=== PATIENT | male | born 1940 | race Caucasian/White ===

== ENCOUNTER → 2024-02-11 | Outpatient (CLI) | payer MEDICARE ==
--- NOTE | 2024-02-12 07:27 | HMCSR ---
APPROVED REPORT EXAM: Two-dimensional and M-mode echocardiogram with Doppler and color Doppler. 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 RISK FACTORS Hypertension Hyperlipidemia 2D Dimensions RVDd4.8 cmLVEF(%)58.4 (>50%)LVED Vol(simp.)131.0 mL IVSd1.0 (0.7-1.1cm)FS(%)31 %LVES Vol(simp.)58.0 mL LVDd4.9 (3.8-5.6cm)LA (2D)3.9 (1.6-4.0cm)LVEF(%, simp.)56 % PWd0.9 (0.7-1.1cm)Ao Root(2D)3.7 (2.0-3.7cm)LA ESV INDEX (BP)27.64 mL/m2 LVDs3.4 (2.5-4.0cm)LVOT diam2.1 (1.8-2.4cm) IVC diam1.9 cm Aortic Valve AoV Vmax1.6 m/Neftali Peak GR9.7 mmHgLVOT Vmax1.3 m/s AoV VTI0.3 mAo Mean GR5.4 mmHgLVOT VTI0.26 m KRYSTYNA (VMAX)3.0 cm2Al P1/2T868 msAVA (VTI) 3.0 cm2 Mitral Valve MV E Vmax44.9 cm/sDECEL Empn214 ms MV A Vmax72.2 cm/sP 1/2 T103 ms E/A ratio0.6MVA (PHT)2.1 cm2 MR Max PG36 mmHg TDI E/E' [id number]/E' Woqiefm05.0 Pulmonary Valve PV Vmax0.8 m/sPV VTI0.15 mPV Mean GR1 mmHg PV Peak GR2.4 mmHgPI End Concha. Edson 1.2 cm/s Tricuspid Valve TR Vmax2.3 m/sRAP (EST) 8 xnNvXOBV56.0 mmHg TR Peak GR22.0 mmHg Left Ventricle Left ventricular cavity size is normal. There is normal LV segmental wall motion. There is normal lef t ventricular wall thickness. LVEF is 55-60%. Stage I diastolic dysfunction. Right Ventricle The right ventricle is dilated. The right ventricular systolic function is normal. Atria The left atrium size is normal. The right atrium is dilated. Aortic Valve Aortic valve is trileaflet. The aortic valve is mildly thickened but opens well. Mild aortic regurgit ation. There is no aortic valvular stenosis. Mitral Valve Mitral valve leaflets are sclerotic but open well. Mitral regurgitation is trace. There is no mitral valve stenosis. Tricuspid Valve The tricuspid valve leaflets appear normal. There is trace tricuspid regurgitation. Right ventricular systolic pressure is estimated at 30-40 mmHg. Pulmonic Valve Pulmonic valve is not well visualized. There is mild valvular regurgitation. Great Vessels The aortic root is normal in size. IVC is dilated and collapses >50% with inspiration. Pericardium No pericardial effusion. Conclusion LVEF is 55-60%. Stage I diastolic dysfunction. Mild aortic regurgitation. Mitral regurgitation is trace.
== END | disposition home or self-care (01) ==
LOC: SHCH 08:07
PROVIDERS: ATTEND Internal Medicine Cardiovascular Disease
DX: I08.8 Other rheumatic multiple valve diseases (principal); I25.10 Atherosclerotic heart disease of native coronary artery without angina pectoris; E78.5 Hyperlipidemia, unspecified; I10 Essential (primary) hypertension
CPT/HCPCS: 93306

== ENCOUNTER → 2024-02-18 | Outpatient (CLI) | payer MEDICARE ==
[2024-02-18] MEDS: REGADENOSON 0.4 MG/5 ML PF SYG IVP ONE (15:23)
--- NOTE | 2024-02-19 08:51 | HMCSR ---
APPROVED REPORT Height: 6 ft 0in Weight: 208 lbs TEST INDICATIONS CAD The imaging protocol used to acquire images was Rest Tc-99m/stress Tc-99m 1 day Consent: The procedure was explained and understood by the patient. Informerd consent was witnessed Arcadio Hung RN First, low dose rest was performed then high dose stress. RESTING DATA: The resting ekg shows: Atrial Fibrillation, RBBB Rest SPECT myocardial perfusion imaging was performed in supine position 95 minutes following the int ravenous injection of 12.9 mCi of Tc-99 Sestamibi. Time of rest injection: 09:10: Date: 02/18/2024 Time of rest imagin:45: Date: 02/18/2024 PHARMACOLOGIC STRESS: Pharmacologic stress test was performed by injecting regadenoson 0.4 mg IV push followed by the intra venous injection of 30.1 mCi of Tc-99 Sestamibi. Time of stress injection: 11:25: Date: 02/18/2024 Time of stress imagin:09: Date: 02/18/2024 Heart Rate at time of stress injection: 44 bpm. Gated Stress SPECT was performed 104 minutes after stress injection. The images were gated to evaluate regional wall motion and calculate left ventricular ejection fracti on. STRESS DETAILS Reason for Termination: Infusion complete Stress Symptoms: Dyspnea, Cough Max HR Achieved: 62 bpm % of APMHR Achieved: 46 Max Blood Pressure: 140/87 mmHg Stress ECG: Atrial Fibrillation, RBBB Conclusion Inferior and apical infarct vs diaphragm attenuation artifact No ischemia LV ejection fraction 63% Nomral LV wall motion Normal LV size at rest and stress No increased lung uptake
== END | disposition home or self-care (01) ==
LOC: EDUNIT# 02-12 08:00 → SHCH 08:56
PROVIDERS: ATTEND Internal Medicine Cardiovascular Disease
DX: I25.10 Atherosclerotic heart disease of native coronary artery without angina pectoris (principal); I45.10 Unspecified right bundle-branch block; I48.91 Unspecified atrial fibrillation
CPT/HCPCS: 78452; 93017; J2785; A9500 ×2